=== PATIENT | female | born 1985 | race Caucasian/White ===

== ENCOUNTER 2020-02-03 23:20 | Inpatient (IN) | payer OTHER ==
[~2020-02-03] VITALS: Ht 172.7 cm; Wt 86.5 kg
[2020-02-04] MEDS ORDERED: ELVI1TAB3 PO (00:54)
[2020-02-04] MEDS ORDERED: BICT1TAB PO (00:54)
[2020-02-04 01:28] LABS: BASOPHILS % (AUTO) 0.3 % (0.0-2.0); EOSINOPHILS % (AUTO) 2.8 % (1.0-6.0); HEMATOCRIT 35.4 % (36-46); HEMOGLOBIN 11.7 g/dL (12.0-16.0); LYMPHOCYTES % (AUTO) 51.6 % (22.0-44.0); MEAN CORPUSCULAR HEMOGLOBIN 27.5 pg (26.0-34.0); MEAN CORPUSCULAR HGB CONC 33.2 G/dL (31.0-37.0); MEAN CORPUSCULAR VOLUME 83 fL (80-100); MONOCYTES # (AUTO) 0.4 K/uL (0.1-1.0); MONOCYTES % (AUTO) 10.7 % (2.0-9.0); NEUTROPHILS # (AUTO) 1.4 K/uL (1.8-7.7); NEUTROPHILS % (AUTO) 34.6 % (40.0-70.0); PLATELET COUNT (AUTO) 327 K/uL (150-450); RED BLOOD CELL COUNT(AUTO) 4.27 MIL/uL (4.00-5.20); RED CELL DISTRIBUTION WIDTH 16.3 % (11.5-14.5)
[2020-02-04 01:48] LABS: ANION GAP 7 mmol/L (8-16); CALCIUM, TOTAL 8.7 mg/dL (8.8-10.5); CARBON DIOXIDE 28 mmol/L (22-29); CHLORIDE 106 mmol/L (98-107); CREATININE 0.85 mg/dL (0.60-1.30); GLOMERULAR FILTR. RATE CALC > 60 mL/min (>60); GLUCOSE,RANDOM 89 mg/dL (70-110); SODIUM SERUM 141 mmol/L (136-145); UREA NITROGEN, BLOOD 16 mg/dL (7-18)
[2020-02-04 01:59] LABS: ALANINE AMINOTRANSFERASE 34 U/L (12-78); ALBUMIN 3.2 g/dL (3.4-5.0); ALKALINE PHOSPHATASE 64 U/L (46-116); ASPARTATE AMINOTRANSFERASE 34 U/L (15-37); BILIRUBIN,TOTAL 0.2 mg/dL (0.1-1.0); HCG,QUANTITATIVE < 1 mIU/mL (0-6); TOTAL PROTEIN, SERUM 7.7 g/dL (6.4-8.2)
[2020-02-04] MEDS ORDERED: ACETAMINOPHEN 500 MG TABLET PO ONE (02:15)
[2020-02-04] MEDS ORDERED: ONDANSETRON HCL 4 MG/2 ML VIAL IVP PRN (03:15)
[2020-02-04] MEDS ORDERED: ACETAMINOPHEN 325 MG TABLET PO PRN ×2 (03:15→04:30)
[2020-02-04] MEDS ORDERED: 0.9% SODIUM CHLORIDE 10 ML SYRINGE IVP PRN ×2 (03:15→04:30)
[2020-02-04 04:46] LABS: THYROID STIMULATING HORMONE 2.26 uIU/mL (0.36-3.74)
[2020-02-04 04:48] LABS: ACETAMINOPHEN < 2 mcg/mL (10-30)
[2020-02-04 04:51] VITALS: BP 102/59
[2020-02-04] MEDS ORDERED: CefTRIAXone 1 GM/DEXTROSE 50 ML IV SCH (06:00)
[2020-02-04] MEDS ORDERED: SODIUM CHLORIDE 0.9% 500 ML IV ONE (06:15)
[2020-02-04] MEDS: HEPARIN SODIUM,PORCINE 5,000 UNITS/ML VIAL SQ SCH ×3 (08:00→23:17)
[2020-02-04] MEDS ORDERED: DiphenhydrAMINE HCL 25 MG CAPSULE PO PRN (12:30)
[2020-02-04] MEDS: RisperiDONE 1 MG TABLET PO SCH ×2 (12:42→22:05)
[2020-02-04 13:36] LABS: APPEARANCE,URINE CLEAR (CLEAR); BILIRUBIN,URINE NEGATIVE (NEGATIVE); GLUCOSE, URINE (UA) NEGATIVE (NEGATIVE); KETONES,URINE NEGATIVE (NEGATIVE); LEUKOCYTE ESTERASE ,URINE NEGATIVE (NEGATIVE); NITRATE,URINE NEGATIVE (NEGATIVE); OCCULT BLOOD,URINE MODERATE (NEGATIVE); PH,URINE 6.5 (5.0-8.0); PROTEIN,URINE NEGATIVE (NEGATIVE); UROBILINOGEN,URINE 0.2 mg/dL (<=1.0)
[2020-02-04 13:44] LABS: AMPHET/METH SCREEN,URINE NEGATIVE (NEGATIVE); BARBITURATE SCREEN, URINE NEGATIVE (NEGATIVE); BENZODIAZEPINES SCREEN,URINE NEGATIVE (NEGATIVE); CANNABINOID SCREEN,URINE NEGATIVE (NEGATIVE); COCAINE SCREEN,URINE NEGATIVE (NEGATIVE); METHADONE SCREEN, URINE NEGATIVE (NEGATIVE); OPIATE SCREEN,URINE NEGATIVE (NEGATIVE)
[2020-02-04 13:45] LABS: PHENCYCLIDINE SCREEN,URINE NEGATIVE (NEGATIVE)
[2020-02-04 14:44] LABS: BACTERIA,URINE None Seen /HPF (None Seen); SQUAMOUS EPITHELIAL CELL,UR Few /LPF (None Seen); WBC,URINE None Seen /HPF (0-5)
[2020-02-04 15:17] VITALS: BP 99/69
[2020-02-04 15:30] VITALS: BP 99/69
[2020-02-04] MEDS ORDERED: ELVITEG/COB/EMTRI/TENOF ALAFEN 150-150-200-10MG TABLET PO ONE (17:30)
[2020-02-04 19:50] VITALS: BP 99/76
[2020-02-04] MEDS ORDERED: TraZODone HCL 100 MG TABLET PO SCH (21:00)
[2020-02-04] MEDS: PHENAZOPYRIDINE HCL 200 MG TABLET PO SCH (22:13)
[2020-02-04] MEDS: ACYCLOVIR 200 MG CAPSULE PO SCH (23:18)
[2020-02-05 03:55] VITALS: BP 96/54
[2020-02-05 06:58] LABS: BASOPHILS % (AUTO) 0.6 % (0.0-2.0); EOSINOPHILS % (AUTO) 3.8 % (1.0-6.0); HEMATOCRIT 35.5 % (36-46); HEMOGLOBIN 11.4 g/dL (12.0-16.0); LYMPHOCYTES # (AUTO) 1.8 K/uL (1.0-4.8); LYMPHOCYTES % (AUTO) 53.7 % (22.0-44.0); MEAN CORPUSCULAR HGB CONC 32.2 G/dL (31.0-37.0); MEAN CORPUSCULAR VOLUME 84 fL (80-100); MONOCYTES # (AUTO) 0.4 K/uL (0.1-1.0); MONOCYTES % (AUTO) 10.7 % (2.0-9.0); NEUTROPHILS % (AUTO) 31.2 % (40.0-70.0); PLATELET COUNT (AUTO) 293 K/uL (150-450); RED BLOOD CELL COUNT(AUTO) 4.24 MIL/uL (4.00-5.20); RED CELL DISTRIBUTION WIDTH 16.3 % (11.5-14.5)
[2020-02-05 07:12] LABS: ALANINE AMINOTRANSFERASE 41 U/L (12-78); ALBUMIN 2.8 g/dL (3.4-5.0); ALKALINE PHOSPHATASE 59 U/L (46-116); ANION GAP 7 mmol/L (8-16); ASPARTATE AMINOTRANSFERASE 35 U/L (15-37); BILIRUBIN,TOTAL 0.3 mg/dL (0.1-1.0); CALCIUM, TOTAL 8.4 mg/dL (8.8-10.5); CARBON DIOXIDE 27 mmol/L (22-29); CHLORIDE 107 mmol/L (98-107); CREATININE 0.75 mg/dL (0.60-1.30); GLOMERULAR FILTR. RATE CALC > 60 mL/min (>60); GLUCOSE,RANDOM 89 mg/dL (70-110); POTASSIUM 4.2 mmol/L (3.5-5.1); SODIUM SERUM 141 mmol/L (136-145); TOTAL PROTEIN, SERUM 7.1 g/dL (6.4-8.2); UREA NITROGEN, BLOOD 21 mg/dL (7-18)
[2020-02-05 08:36] VITALS: BP 95/73
[2020-02-05] MEDS: ACYCLOVIR 200 MG CAPSULE PO SCH ×2 (09:34→20:12)
[2020-02-05] MEDS: HEPARIN SODIUM,PORCINE 5,000 UNITS/ML VIAL SQ SCH ×3 (09:34→23:21)
[2020-02-05] MEDS: RisperiDONE 1 MG TABLET PO SCH ×2 (09:34→20:12)
[2020-02-05] MEDS: PHENAZOPYRIDINE HCL 200 MG TABLET PO SCH ×3 (09:35→20:11)
[2020-02-05] MEDS: ELVITEG/COB/EMTRI/TENOF ALAFEN 150-150-200-10MG TABLET PO SCH (10:24)
[2020-02-05 16:18] VITALS: BP 99/62
[2020-02-05 20:10] VITALS: BP 100/51
[2020-02-05] MEDS: ZOLPIDEM TARTRATE 10 MG TABLET PO PRN (22:02)
[2020-02-06 05:35] VITALS: BP 104/63
[2020-02-06] MEDS: HEPARIN SODIUM,PORCINE 5,000 UNITS/ML VIAL SQ SCH ×2 (08:00→15:53)
[2020-02-06] MEDS: RisperiDONE 1 MG TABLET PO SCH ×2 (08:17→20:28)
[2020-02-06] MEDS: ACYCLOVIR 200 MG CAPSULE PO SCH ×2 (08:17→20:28)
[2020-02-06] MEDS: PHENAZOPYRIDINE HCL 200 MG TABLET PO SCH ×2 (08:17→15:53)
[2020-02-06] MEDS: ELVITEG/COB/EMTRI/TENOF ALAFEN 150-150-200-10MG TABLET PO SCH (08:18)
[2020-02-06 08:58] VITALS: BP 118/72
[2020-02-06 16:22] VITALS: BP 107/55
[2020-02-06 20:23] VITALS: BP 107/63
[2020-02-06] MEDS: ZOLPIDEM TARTRATE 10 MG TABLET PO PRN (20:28)
[2020-02-07 05:33] VITALS: BP 99/62
[2020-02-07 07:38] VITALS: BP 98/63
[2020-02-07] MEDS: HEPARIN SODIUM,PORCINE 5,000 UNITS/ML VIAL SQ SCH ×3 (08:00→16:00)
[2020-02-07] MEDS: RisperiDONE 1 MG TABLET PO SCH (09:08)
[2020-02-07] MEDS: ACYCLOVIR 200 MG CAPSULE PO SCH (09:09)
[2020-02-07] MEDS: ELVITEG/COB/EMTRI/TENOF ALAFEN 150-150-200-10MG TABLET PO SCH (09:09)
[2020-02-07] MEDS ORDERED: ACYC200L PO (13:52)
[2020-02-07] MEDS ORDERED: RISP0.5T20 PO (13:53)
[2020-02-07 15:42] VITALS: BP 102/62
== END 2020-02-07 16:55 | DRG 885 ==
LOC: EMS 23:20 → 6S 02-04 03:05
PROVIDERS: ADMIT Internal Medicine; ATTEND Internal Medicine
DX: F31.5 Bipolar disorder, current episode depressed, severe, with psychotic features (principal); R45.851 Suicidal ideations; D72.819 Decreased white blood cell count, unspecified; R30.0 Dysuria; Z21 Asymptomatic human immunodeficiency virus [HIV] infection status; F17.210 Nicotine dependence, cigarettes, uncomplicated; Z88.8 Allergy status to other drugs, medicaments and biological substances; F15.10 Other stimulant abuse, uncomplicated; F41.9 Anxiety disorder, unspecified; A60.00 Herpesviral infection of urogenital system, unspecified; Z91.14 Patient's other noncompliance with medication regimen
CPT/HCPCS: 84443; 86360; G0480; G0481; J0696; J1644; J7040

== ENCOUNTER 2020-02-08 01:50 | Inpatient (IN) | payer OTHER ==
[~2020-02-08] VITALS: Ht 167.6 cm; Wt 90.7 kg
[~2020-02-08 01:50] MED LIST: ACYC200L PO; ELVI1TAB3 PO; RISP0.5T20 PO
[2020-02-08] MEDS ORDERED: ACYCLOVIR 200 MG CAPSULE PO ONE (02:30)
[2020-02-08] MEDS ORDERED: ONDANSETRON HCL 4 MG/2 ML VIAL IVP PRN ×2 (03:00→20:45)
[2020-02-08] MEDS ORDERED: ACETAMINOPHEN 325 MG TABLET PO PRN (03:00)
[2020-02-08] MEDS ORDERED: 0.9% SODIUM CHLORIDE 10 ML SYRINGE IVP PRN (03:00)
[2020-02-08 03:23] LABS: BASOPHILS % (AUTO) 0.8 % (0.0-2.0); EOSINOPHILS % (AUTO) 2.7 % (1.0-6.0); HEMOGLOBIN 11.2 g/dL (12.0-16.0); LYMPHOCYTES # (AUTO) 2.2 K/uL (1.0-4.8); LYMPHOCYTES % (AUTO) 53.8 % (22.0-44.0); MEAN CORPUSCULAR HEMOGLOBIN 27.5 pg (26.0-34.0); MEAN CORPUSCULAR HGB CONC 32.9 G/dL (31.0-37.0); MEAN CORPUSCULAR VOLUME 84 fL (80-100); MONOCYTES # (AUTO) 0.4 K/uL (0.1-1.0); MONOCYTES % (AUTO) 9.6 % (2.0-9.0); NEUTROPHILS # (AUTO) 1.3 K/uL (1.8-7.7); NEUTROPHILS % (AUTO) 33.1 % (40.0-70.0); PLATELET COUNT (AUTO) 334 K/uL (150-450); RED BLOOD CELL COUNT(AUTO) 4.06 MIL/uL (4.00-5.20); RED CELL DISTRIBUTION WIDTH 16.3 % (11.5-14.5)
[2020-02-08 03:32] LABS: ANION GAP 5 mmol/L (8-16); CALCIUM, TOTAL 8.7 mg/dL (8.8-10.5); CARBON DIOXIDE 32 mmol/L (22-29); CHLORIDE 101 mmol/L (98-107); CREATININE 0.89 mg/dL (0.60-1.30); GLOMERULAR FILTR. RATE CALC > 60 mL/min (>60); GLUCOSE,RANDOM 126 mg/dL (70-110); POTASSIUM 3.7 mmol/L (3.5-5.1); SODIUM SERUM 138 mmol/L (136-145); UREA NITROGEN, BLOOD 21 mg/dL (7-18)
[2020-02-08 03:43] LABS: ALANINE AMINOTRANSFERASE 55 U/L (12-78); ALKALINE PHOSPHATASE 75 U/L (46-116); ASPARTATE AMINOTRANSFERASE 43 U/L (15-37); BILIRUBIN,TOTAL 0.2 mg/dL (0.1-1.0); HCG,QUANTITATIVE < 1 mIU/mL (0-6); TOTAL PROTEIN, SERUM 7.7 g/dL (6.4-8.2)
[2020-02-08 04:05] VITALS: BP 109/72
[2020-02-08] MEDS ORDERED: PNEUMOCOCCAL VACCINE POLYVALENT 0.5 ML VIAL [PPSV23] IM ONE (06:00)
[2020-02-08 08:04] VITALS: BP 97/52
[2020-02-08 15:23] VITALS: BP 102/46
[2020-02-08] MEDS: DIVALPROEX SODIUM 500 MG DR TABLET PO SCH (19:50)
[2020-02-08] MEDS: RisperiDONE 3 MG TABLET PO SCH (19:50)
[2020-02-08] MEDS: ACYCLOVIR 800 MG TABLET PO SCH (19:50)
[2020-02-08] MEDS: BENZTROPINE MESYLATE 1 MG TABLET PO SCH (19:50)
[2020-02-08 19:56] VITALS: BP 120/64
[2020-02-08] MEDS ORDERED: IPRATROPIUM BROMIDE 0.5 MG/2.5 ML NEB SOLUTION NEB PRN (20:45)
[2020-02-08] MEDS ORDERED: BISACODYL 10 MG RECTAL RECTAL SUPPOSITORY PR PRN (20:45)
[2020-02-08] MEDS ORDERED: MORPHINE SULFATE 2 MG/ML SYRINGE IVP PRN (20:45)
[2020-02-08] MEDS ORDERED: ALBUTEROL SULFATE 2.5 MG/0.5 ML NEB SOLUTION NEB PRN (20:45)
[2020-02-08] MEDS ORDERED: MAGNESIUM HYDROXIDE SUSPENSION 30 ML UDCUP PO PRN (20:45)
[2020-02-08] MEDS ORDERED: HYDROCODONE/ACETAMINOPHEN 5-325 MG TABLET PO PRN (20:45)
[2020-02-08] MEDS ORDERED: RisperiDONE 0.5 MG TABLET PO SCH (21:00)
[2020-02-08] MEDS ORDERED: ZOLPIDEM TARTRATE 5 MG TABLET PO PRN (21:15)
[2020-02-08] MEDS: DOCUSATE SODIUM 100 MG CAPSULE PO SCH (21:33)
[2020-02-08] MEDS: ZOLPIDEM TARTRATE 5 MG TABLET PO PRN (21:33)
[2020-02-09] MEDS: HEPARIN SODIUM,PORCINE 5,000 UNITS/ML VIAL SQ SCH ×4 (08:00→23:35)
[2020-02-09 08:11] VITALS: BP 103/51
[2020-02-09] MEDS: DOCUSATE SODIUM 100 MG CAPSULE PO SCH ×2 (08:33→20:16)
[2020-02-09] MEDS: DIVALPROEX SODIUM 500 MG DR TABLET PO SCH ×2 (08:33→20:16)
[2020-02-09] MEDS: BENZTROPINE MESYLATE 1 MG TABLET PO SCH ×2 (08:33→20:16)
[2020-02-09] MEDS: ELVITEG/COB/EMTRI/TENOF ALAFEN 150-150-200-10MG TABLET PO SCH (08:34)
[2020-02-09] MEDS: ACYCLOVIR 800 MG TABLET PO SCH ×2 (08:34→20:16)
[2020-02-09] MEDS: RisperiDONE 3 MG TABLET PO SCH ×2 (08:34→20:16)
[2020-02-09 15:58] VITALS: BP 101/64
[2020-02-09] MEDS: ZOLPIDEM TARTRATE 5 MG TABLET PO PRN (20:18)
[2020-02-09 20:19] VITALS: BP 105/66
[2020-02-09] MEDS: ACETAMINOPHEN 325 MG TABLET PO PRN (23:26)
[2020-02-10 04:58] VITALS: BP 103/62
[2020-02-10 08:12] VITALS: BP 111/62
[2020-02-10] MEDS: DIVALPROEX SODIUM 500 MG DR TABLET PO SCH ×2 (08:18→20:04)
[2020-02-10] MEDS: DOCUSATE SODIUM 100 MG CAPSULE PO SCH ×2 (08:18→20:04)
[2020-02-10] MEDS: HEPARIN SODIUM,PORCINE 5,000 UNITS/ML VIAL SQ SCH ×3 (08:18→23:26)
[2020-02-10] MEDS: ACYCLOVIR 800 MG TABLET PO SCH ×2 (08:19→20:04)
[2020-02-10] MEDS: RisperiDONE 3 MG TABLET PO SCH ×2 (08:19→20:04)
[2020-02-10] MEDS: ELVITEG/COB/EMTRI/TENOF ALAFEN 150-150-200-10MG TABLET PO SCH (08:19)
[2020-02-10] MEDS: BENZTROPINE MESYLATE 1 MG TABLET PO SCH ×2 (08:19→20:04)
[2020-02-10 16:05] VITALS: BP 160/61
[2020-02-10 20:06] VITALS: BP 99/56
[2020-02-10] MEDS: ZOLPIDEM TARTRATE 5 MG TABLET PO PRN (20:39)
[2020-02-11 08:16] VITALS: BP 127/96
[2020-02-11] MEDS: DIVALPROEX SODIUM 500 MG DR TABLET PO SCH ×2 (08:16→20:19)
[2020-02-11] MEDS: HEPARIN SODIUM,PORCINE 5,000 UNITS/ML VIAL SQ SCH ×3 (08:16→23:25)
[2020-02-11] MEDS: DOCUSATE SODIUM 100 MG CAPSULE PO SCH ×2 (08:16→20:19)
[2020-02-11] MEDS: BENZTROPINE MESYLATE 1 MG TABLET PO SCH ×2 (08:16→20:19)
[2020-02-11] MEDS: ELVITEG/COB/EMTRI/TENOF ALAFEN 150-150-200-10MG TABLET PO SCH (08:16)
[2020-02-11] MEDS: ACYCLOVIR 800 MG TABLET PO SCH ×2 (08:17→20:19)
[2020-02-11] MEDS: RisperiDONE 3 MG TABLET PO SCH ×2 (08:17→20:19)
[2020-02-11 15:30] VITALS: BP 110/58
[2020-02-11 20:04] VITALS: BP 111/70
[2020-02-11] MEDS: ZOLPIDEM TARTRATE 5 MG TABLET PO PRN (21:50)
[2020-02-11] MEDS ORDERED: LORazepam 2 MG/ML VIAL IM ONE (23:15)
[2020-02-12] MEDS ORDERED: HALOPERIDOL LACTATE 5 MG/ML VIAL IM ONE (03:00)
[2020-02-12] MEDS ORDERED: DiphenhydrAMINE HCL 50 MG/ML VIAL IM ONE (03:00)
[2020-02-12] MEDS ORDERED: LORazepam 2 MG/ML VIAL IM ONE (03:00)
[2020-02-12 05:15] VITALS: BP 114/73
[2020-02-12 06:37] VITALS: BP 114/73
[2020-02-12] MEDS: HEPARIN SODIUM,PORCINE 5,000 UNITS/ML VIAL SQ SCH ×3 (08:00→23:51)
[2020-02-12 08:27] LABS: VALPROIC ACID 57 mcg/mL (50-100)
[2020-02-12] MEDS: ACYCLOVIR 800 MG TABLET PO SCH ×2 (08:49→20:02)
[2020-02-12] MEDS: DIVALPROEX SODIUM 500 MG DR TABLET PO SCH ×2 (08:49→20:02)
[2020-02-12] MEDS: DOCUSATE SODIUM 100 MG CAPSULE PO SCH ×2 (08:49→20:02)
[2020-02-12] MEDS: ELVITEG/COB/EMTRI/TENOF ALAFEN 150-150-200-10MG TABLET PO SCH (08:49)
[2020-02-12] MEDS: RisperiDONE 3 MG TABLET PO SCH (08:49)
[2020-02-12] MEDS: BENZTROPINE MESYLATE 1 MG TABLET PO SCH (08:49)
[2020-02-12 11:35] LABS: ALANINE AMINOTRANSFERASE 42 U/L (12-78); ALBUMIN 3.2 g/dL (3.4-5.0); ALKALINE PHOSPHATASE 57 U/L (46-116); ANION GAP 10 mmol/L (8-16); ASPARTATE AMINOTRANSFERASE 31 U/L (15-37); BILIRUBIN,TOTAL 0.2 mg/dL (0.1-1.0); CARBON DIOXIDE 25 mmol/L (22-29); CHLORIDE 104 mmol/L (98-107); CREATININE 0.77 mg/dL (0.60-1.30); GLOMERULAR FILTR. RATE CALC > 60 mL/min (>60); GLUCOSE,RANDOM 101 mg/dL (70-110); POTASSIUM 3.7 mmol/L (3.5-5.1); SODIUM SERUM 139 mmol/L (136-145); TOTAL PROTEIN, SERUM 8.1 g/dL (6.4-8.2); UREA NITROGEN, BLOOD 23 mg/dL (7-18)
[2020-02-12] MEDS ORDERED: ACYC800T PO (12:10)
[2020-02-12] MEDS ORDERED: RISP1TAB27 PO (12:10)
[2020-02-12 13:25] VITALS: BP 108/73
[2020-02-12 18:26] LABS: APPEARANCE,URINE CLEAR (CLEAR); BILIRUBIN,URINE NEGATIVE (NEGATIVE); GLUCOSE, URINE (UA) NEGATIVE (NEGATIVE); KETONES,URINE NEGATIVE (NEGATIVE); LEUKOCYTE ESTERASE ,URINE NEGATIVE (NEGATIVE); NITRATE,URINE NEGATIVE (NEGATIVE); OCCULT BLOOD,URINE MODERATE (NEGATIVE); PH,URINE 7.5 (5.0-8.0); PROTEIN,URINE NEGATIVE (NEGATIVE); UROBILINOGEN,URINE 0.2 mg/dL (<=1.0)
[2020-02-12 18:45] LABS: WBC,URINE 0-2 /HPF (0-5)
[2020-02-12 18:46] LABS: BACTERIA,URINE None Seen /HPF (None Seen); SQUAMOUS EPITHELIAL CELL,UR Few /LPF (None Seen)
[2020-02-12 19:30] VITALS: BP 115/75
[2020-02-12] MEDS: ZOLPIDEM TARTRATE 5 MG TABLET PO PRN (20:02)
[2020-02-12] MEDS ORDERED: HALOPERIDOL LACTATE 5 MG/ML VIAL IM PRN (21:00)
[2020-02-12] MEDS ORDERED: LORazepam 2 MG/ML VIAL IM PRN (21:00)
[2020-02-13 04:00] VITALS: BP 100/72
[2020-02-13] MEDS: ELVITEG/COB/EMTRI/TENOF ALAFEN 150-150-200-10MG TABLET PO SCH (08:00)
[2020-02-13] MEDS: HEPARIN SODIUM,PORCINE 5,000 UNITS/ML VIAL SQ SCH ×2 (08:00→15:50)
[2020-02-13] MEDS: DIVALPROEX SODIUM 500 MG DR TABLET PO SCH ×2 (09:00→20:24)
[2020-02-13] MEDS: DOCUSATE SODIUM 100 MG CAPSULE PO SCH ×2 (09:00→20:24)
[2020-02-13] MEDS: ACYCLOVIR 800 MG TABLET PO SCH ×2 (09:00→20:25)
[2020-02-13 09:31] VITALS: BP 116/76
[2020-02-13 12:37] LABS: BASOPHILS % (AUTO) 0.7 % (0.0-2.0); EOSINOPHILS % (AUTO) 1.3 % (1.0-6.0); HEMATOCRIT 33.1 % (36-46); HEMOGLOBIN 11.1 g/dL (12.0-16.0); LYMPHOCYTES # (AUTO) 2.3 K/uL (1.0-4.8); LYMPHOCYTES % (AUTO) 48.1 % (22.0-44.0); MEAN CORPUSCULAR HEMOGLOBIN 27.8 pg (26.0-34.0); MEAN CORPUSCULAR HGB CONC 33.5 G/dL (31.0-37.0); MEAN CORPUSCULAR VOLUME 83 fL (80-100); MONOCYTES # (AUTO) 0.5 K/uL (0.1-1.0); MONOCYTES % (AUTO) 10.6 % (2.0-9.0); NEUTROPHILS # (AUTO) 1.9 K/uL (1.8-7.7); NEUTROPHILS % (AUTO) 39.3 % (40.0-70.0); PLATELET COUNT (AUTO) 348 K/uL (150-450); RED BLOOD CELL COUNT(AUTO) 3.99 MIL/uL (4.00-5.20); RED CELL DISTRIBUTION WIDTH 16.8 % (11.5-14.5)
[2020-02-13 12:56] VITALS: BP 122/70
[2020-02-13 16:33] LABS: ABG A-A DIFF O2 16.1 mmHg (10-20.0); ABG BASE EXCESS -1.7 mmol/L (-2.0-3.0); ABG CARBOXYHEMOGLOBIN 1.4 % (0.0-1.5); ABG HCO3 23.1 mmol/L (22.0-26.0); ABG METHEMOGLOBIN 0.2 % (0.0-1.5); ABG OXYGEN CONTENT 15.9 mL/dL (15.0-23.0); ABG OXYHEMOGLOBIN 94.5 % (94.0-100.0); ABG PCO2 40 mmHg (35-45); ABG PH 7.382 (7.350-7.450); ABG TOTAL HEMOGLOBIN 11.9 G/dL (12.0-18.0); PO2, ARTERIAL BG 85.5 mmHg (92.0-100.0); SOURCE, BLOOD GAS ARTERIAL; TEMPERATURE, FAHRENHEIT, BG 98.6 FAHREN (96.0-98.6)
[2020-02-13 16:35] LABS: SITE, BLOOD GAS RT RADIAL
[2020-02-13 19:41] LABS: AMPHET/METH SCREEN,URINE NEGATIVE (NEGATIVE); BARBITURATE SCREEN, URINE NEGATIVE (NEGATIVE); BENZODIAZEPINES SCREEN,URINE NEGATIVE (NEGATIVE); CANNABINOID SCREEN,URINE NEGATIVE (NEGATIVE); COCAINE SCREEN,URINE NEGATIVE (NEGATIVE); METHADONE SCREEN, URINE NEGATIVE (NEGATIVE); OPIATE SCREEN,URINE NEGATIVE (NEGATIVE); PHENCYCLIDINE SCREEN,URINE NEGATIVE (NEGATIVE)
[2020-02-13 20:06] VITALS: BP 109/72
[2020-02-14 04:00] VITALS: BP 124/78
[2020-02-14 07:40] VITALS: BP 121/62
[2020-02-14] MEDS: HEPARIN SODIUM,PORCINE 5,000 UNITS/ML VIAL SQ SCH ×5 (08:00→23:36)
[2020-02-14] MEDS: ACYCLOVIR 800 MG TABLET PO SCH ×2 (08:12→21:25)
[2020-02-14] MEDS: DIVALPROEX SODIUM 500 MG DR TABLET PO SCH ×2 (08:12→21:25)
[2020-02-14] MEDS: ELVITEG/COB/EMTRI/TENOF ALAFEN 150-150-200-10MG TABLET PO SCH (08:12)
[2020-02-14] MEDS: DOCUSATE SODIUM 100 MG CAPSULE PO SCH ×3 (09:35→21:29)
[2020-02-14 21:02] VITALS: BP 104/53
[2020-02-15 05:45] VITALS: BP 99/55
[2020-02-15 06:35] LABS: BASOPHILS % (AUTO) 0.6 % (0.0-2.0); EOSINOPHILS % (AUTO) 2.1 % (1.0-6.0); HEMATOCRIT 34.9 % (36-46); HEMOGLOBIN 11.5 g/dL (12.0-16.0); LYMPHOCYTES # (AUTO) 2.9 K/uL (1.0-4.8); LYMPHOCYTES % (AUTO) 53.2 % (22.0-44.0); MEAN CORPUSCULAR HEMOGLOBIN 27.5 pg (26.0-34.0); MEAN CORPUSCULAR HGB CONC 32.9 G/dL (31.0-37.0); MEAN CORPUSCULAR VOLUME 84 fL (80-100); MONOCYTES # (AUTO) 0.6 K/uL (0.1-1.0); MONOCYTES % (AUTO) 11.3 % (2.0-9.0); NEUTROPHILS # (AUTO) 1.8 K/uL (1.8-7.7); NEUTROPHILS % (AUTO) 32.8 % (40.0-70.0); PLATELET COUNT (AUTO) 336 K/uL (150-450); RED BLOOD CELL COUNT(AUTO) 4.18 MIL/uL (4.00-5.20); RED CELL DISTRIBUTION WIDTH 16.3 % (11.5-14.5)
[2020-02-15 07:14] LABS: ANION GAP 10 mmol/L (8-16); CALCIUM, TOTAL 8.7 mg/dL (8.8-10.5); CARBON DIOXIDE 29 mmol/L (22-29); CHLORIDE 101 mmol/L (98-107); CREATININE 0.87 mg/dL (0.60-1.30); FREE T4 (FREE THYROXINE) 0.98 ng/dL (0.76-1.46); GLOMERULAR FILTR. RATE CALC > 60 mL/min (>60); GLUCOSE,RANDOM 94 mg/dL (70-110); POTASSIUM 4.2 mmol/L (3.5-5.1); SODIUM SERUM 140 mmol/L (136-145); THYROID STIMULATING HORMONE 2.09 uIU/mL (0.36-3.74); UREA NITROGEN, BLOOD 21 mg/dL (7-18)
[2020-02-15] MEDS: HEPARIN SODIUM,PORCINE 5,000 UNITS/ML VIAL SQ SCH ×2 (08:00→16:00)
[2020-02-15 09:10] VITALS: BP 99/55
[2020-02-15] MEDS: ELVITEG/COB/EMTRI/TENOF ALAFEN 150-150-200-10MG TABLET PO SCH (09:23)
[2020-02-15] MEDS: ACYCLOVIR 800 MG TABLET PO SCH ×2 (09:23→20:19)
[2020-02-15] MEDS: DIVALPROEX SODIUM 500 MG DR TABLET PO SCH ×2 (09:23→20:19)
[2020-02-15 17:07] VITALS: BP 104/60
[2020-02-15 20:11] VITALS: BP 109/61
[2020-02-15] MEDS: DOCUSATE SODIUM 100 MG CAPSULE PO SCH (20:19)
[2020-02-16] MEDS: ACETAMINOPHEN 325 MG TABLET PO PRN ×3 (02:24→19:54)
[2020-02-16] MEDS: HEPARIN SODIUM,PORCINE 5,000 UNITS/ML VIAL SQ SCH ×3 (08:00→16:00)
[2020-02-16 08:40] VITALS: BP 102/66
[2020-02-16] MEDS: ELVITEG/COB/EMTRI/TENOF ALAFEN 150-150-200-10MG TABLET PO SCH (12:03)
[2020-02-16] MEDS: DIVALPROEX SODIUM 500 MG DR TABLET PO SCH ×2 (12:03→19:53)
[2020-02-16] MEDS: DOCUSATE SODIUM 100 MG CAPSULE PO SCH ×2 (12:03→19:53)
[2020-02-16] MEDS: ACYCLOVIR 800 MG TABLET PO SCH ×2 (12:04→19:53)
[2020-02-16 19:00] VITALS: BP 104/54
[2020-02-16] MEDS: RisperiDONE 1 MG TABLET PO SCH (21:09)
[2020-02-16] MEDS: ZOLPIDEM TARTRATE 5 MG TABLET PO PRN (21:11)
[2020-02-17] MEDS: ACETAMINOPHEN 325 MG TABLET PO PRN ×3 (00:47→21:49)
[2020-02-17 04:00] VITALS: BP 104/69
[2020-02-17] MEDS: HEPARIN SODIUM,PORCINE 5,000 UNITS/ML VIAL SQ SCH ×3 (08:00→16:00)
[2020-02-17] MEDS: DIVALPROEX SODIUM 500 MG DR TABLET PO SCH ×2 (08:08→21:15)
[2020-02-17] MEDS: ELVITEG/COB/EMTRI/TENOF ALAFEN 150-150-200-10MG TABLET PO SCH (08:08)
[2020-02-17] MEDS: ACYCLOVIR 800 MG TABLET PO SCH ×2 (08:08→21:15)
[2020-02-17] MEDS: DOCUSATE SODIUM 100 MG CAPSULE PO SCH ×2 (08:08→21:00)
[2020-02-17] MEDS: RisperiDONE 1 MG TABLET PO SCH ×2 (08:08→21:15)
[2020-02-17 08:09] VITALS: BP 92/56
[2020-02-17 19:40] VITALS: BP 99/56
[2020-02-17] MEDS: ZOLPIDEM TARTRATE 5 MG TABLET PO PRN (21:17)
[2020-02-18 04:00] VITALS: BP 100/61
[2020-02-18] MEDS: ACETAMINOPHEN 325 MG TABLET PO PRN ×3 (04:01→20:11)
[2020-02-18] MEDS: HEPARIN SODIUM,PORCINE 5,000 UNITS/ML VIAL SQ SCH ×4 (08:00→23:31)
[2020-02-18 08:21] VITALS: BP 92/64
[2020-02-18] MEDS: DOCUSATE SODIUM 100 MG CAPSULE PO SCH ×2 (09:00→20:13)
[2020-02-18] MEDS: ELVITEG/COB/EMTRI/TENOF ALAFEN 150-150-200-10MG TABLET PO SCH (09:29)
[2020-02-18] MEDS: DIVALPROEX SODIUM 500 MG DR TABLET PO SCH ×2 (09:29→20:11)
[2020-02-18] MEDS: ACYCLOVIR 800 MG TABLET PO SCH ×2 (09:29→20:11)
[2020-02-18] MEDS: RisperiDONE 1 MG TABLET PO SCH ×2 (09:29→20:11)
[2020-02-18] MEDS ORDERED: RISP1TAB27 PO (13:29)
[2020-02-18 19:51] VITALS: BP 94/55
[2020-02-18] MEDS: ZOLPIDEM TARTRATE 5 MG TABLET PO PRN (20:11)
[2020-02-19] MEDS: ACETAMINOPHEN 325 MG TABLET PO PRN (00:45)
[2020-02-19] MEDS ORDERED: RISP1TAB27 PO (00:56)
[2020-02-19] MEDS ORDERED: ACET-3207 PO (01:00)
[2020-02-19 04:40] VITALS: BP 94/56
[2020-02-19 07:44] VITALS: BP 93/59
[2020-02-19] MEDS: HEPARIN SODIUM,PORCINE 5,000 UNITS/ML VIAL SQ SCH ×2 (08:00→08:02)
[2020-02-19] MEDS: ELVITEG/COB/EMTRI/TENOF ALAFEN 150-150-200-10MG TABLET PO SCH (08:02)
[2020-02-19] MEDS: ACYCLOVIR 800 MG TABLET PO SCH (08:02)
[2020-02-19] MEDS: DOCUSATE SODIUM 100 MG CAPSULE PO SCH (08:02)
[2020-02-19] MEDS: DIVALPROEX SODIUM 500 MG DR TABLET PO SCH (08:03)
[2020-02-19] MEDS: RisperiDONE 1 MG TABLET PO SCH (08:03)
[2020-02-19] MEDS ORDERED: DIVA-111 PO (11:34)
== END 2020-02-19 14:18 | DRG 92 ==
LOC: EMS 01:51 → 6S 02:30
PROVIDERS: ADMIT Hospitalist; ATTEND Hospitalist
DX: G92 Toxic encephalopathy (principal); R45.851 Suicidal ideations; F17.210 Nicotine dependence, cigarettes, uncomplicated; B00.9 Herpesviral infection, unspecified; F31.9 Bipolar disorder, unspecified; Z21 Asymptomatic human immunodeficiency virus [HIV] infection status; F41.9 Anxiety disorder, unspecified; Z28.21 Immunization not carried out because of patient refusal; Z88.8 Allergy status to other drugs, medicaments and biological substances; Z79.899 Other long term (current) drug therapy
CPT/HCPCS: 70450; 80307; 82805; 84145; 84439; 84443; G0480; J1200; J1630; J1644; J2060

== ENCOUNTER 2022-12-17 10:57 | Inpatient (IN) | payer OTHER ==
[~2022-12-17] VITALS: Ht 175.3 cm; Wt 102.0 kg
[~2022-12-17 10:57] MED LIST changes: +ACET-3207 PO; +ACYC-138 PO; -ACYC200L PO; +DIVA-111 PO; -RISP0.5T20 PO; +RISP1TAB48 PO
[2022-12-17] MEDS ORDERED: TEST200V27 IM (11:31)
[2022-12-17] MEDS ORDERED: TENO300 PO (11:31)
[2022-12-17] MEDS ORDERED: LAMI150T33 PO (11:31)
[2022-12-17] MEDS ORDERED: METR500 PO (11:31)
[2022-12-17 12:15] LABS: BASOPHILS % (AUTO) 0.6 % (0.0-2.0); EOSINOPHILS % (AUTO) 1.3 % (1.0-6.0); HEMATOCRIT 40.4 % (36-46); HEMOGLOBIN 13.6 g/dL (12.0-16.0); LYMPHOCYTES # (AUTO) 3.2 K/uL (1.0-4.8); LYMPHOCYTES % (AUTO) 46.2 % (22.0-44.0); MEAN CORPUSCULAR HEMOGLOBIN 31.8 pg (26.0-34.0); MEAN CORPUSCULAR HGB CONC 33.7 G/dL (31.0-37.0); MEAN CORPUSCULAR VOLUME 95 fL (80-100); MONOCYTES # (AUTO) 0.6 K/uL (0.1-1.0); MONOCYTES % (AUTO) 8.4 % (2.0-9.0); NEUTROPHILS % (AUTO) 43.5 % (40.0-70.0); PLATELET COUNT (AUTO) 291 K/uL (150-450); RED BLOOD CELL COUNT(AUTO) 4.27 MIL/uL (4.00-5.20); RED CELL DISTRIBUTION WIDTH 16.3 % (11.5-14.5)
[2022-12-17] MEDS ORDERED: DIVA-112 PO (12:31)
[2022-12-17 12:33] LABS: AMPHET/METH SCREEN,URINE NEGATIVE (NEGATIVE); BARBITURATE SCREEN, URINE NEGATIVE (NEGATIVE); BENZODIAZEPINES SCREEN,URINE NEGATIVE (NEGATIVE); CANNABINOID SCREEN,URINE NEGATIVE (NEGATIVE); COCAINE SCREEN,URINE NEGATIVE (NEGATIVE); METHADONE SCREEN, URINE NEGATIVE (NEGATIVE); OPIATE SCREEN,URINE NEGATIVE (NEGATIVE); PHENCYCLIDINE SCREEN,URINE NEGATIVE (NEGATIVE)
[2022-12-17 12:39] LABS: ANION GAP 12 mmol/L (8-16); CARBON DIOXIDE 25 mmol/L (22-29); CHLORIDE 104 mmol/L (98-107); CREATININE 0.79 mg/dL (0.60-1.30); GLOMERULAR FILTR. RATE CALC > 60 mL/min (>60); GLUCOSE,RANDOM 97 mg/dL (70-110); POTASSIUM 3.4 mmol/L (3.5-5.1); SODIUM SERUM 141 mmol/L (136-145)
[2022-12-17 12:45] LABS: ALANINE AMINOTRANSFERASE 45 U/L (12-78); ALBUMIN 3.7 g/dL (3.4-5.0); ALKALINE PHOSPHATASE 55 U/L (46-116); ASPARTATE AMINOTRANSFERASE 27 U/L (15-37); BILIRUBIN,TOTAL 0.4 mg/dL (0.1-1.0); TOTAL PROTEIN, SERUM 7.9 g/dL (6.4-8.2)
[2022-12-17] MEDS ORDERED: IPRATROPIUM BROMIDE 0.5 MG/2.5 ML NEB SOLUTION NEB PRN (14:30)
[2022-12-17] MEDS ORDERED: 0.9% SODIUM CHLORIDE 10 ML SYRINGE IVP PRN (14:30)
[2022-12-17] MEDS ORDERED: ONDANSETRON HCL 4 MG/2 ML VIAL IVP PRN (14:30)
[2022-12-17] MEDS ORDERED: BISACODYL 10 MG RECTAL RECTAL SUPPOSITORY PR PRN (14:30)
[2022-12-17] MEDS ORDERED: ALBUTEROL SULFATE 2.5 MG/0.5 ML NEB SOLUTION NEB PRN (14:30)
[2022-12-17] MEDS ORDERED: ACETAMINOPHEN 325 MG TABLET PO PRN (14:30)
[2022-12-17 15:03] LABS: VALPROIC ACID < 3 mcg/mL (50-100)
[2022-12-17 21:02] VITALS: BP 101/53
[2022-12-17] MEDS ORDERED: HALOPERIDOL LACTATE 5 MG/ML VIAL IM ONE (21:30)
[2022-12-17] MEDS: MetroNIDAZOLE 500 MG TABLET PO SCH (21:45)
[2022-12-17] MEDS: DIVALPROEX SODIUM 500 MG DR TABLET PO SCH (21:45)
[2022-12-17] MEDS: TENOFOVIR DISOPROXIL FUMARATE 300 MG TABLET PO SCH (21:45)
[2022-12-17 22:11] LABS: APPEARANCE,URINE HAZY (CLEAR); BILIRUBIN,URINE NEGATIVE (NEGATIVE); GLUCOSE, URINE (UA) NEGATIVE (NEGATIVE); KETONES,URINE NEGATIVE (NEGATIVE); LEUKOCYTE ESTERASE ,URINE TRACE (NEGATIVE); NITRATE,URINE NEGATIVE (NEGATIVE); OCCULT BLOOD,URINE NEGATIVE (NEGATIVE); PH,URINE 7.5 (5.0-8.0); PROTEIN,URINE NEGATIVE (NEGATIVE); SPECIFIC GRAVITIY, URINE 1.016 (1.003-1.030); UROBILINOGEN,URINE <=1.0 mg/dL (<=1.0)
[2022-12-17 22:17] LABS: BACTERIA,URINE Rare /HPF (None Seen); RBC,URINE 0-2 /HPF (0-2)
[2022-12-17 22:18] LABS: SQUAMOUS EPITHELIAL CELL,UR Few /LPF (None Seen)
[2022-12-18 05:27] VITALS: BP 93/59
[2022-12-18] MEDS: MetroNIDAZOLE 500 MG TABLET PO SCH ×2 (09:22→20:55)
[2022-12-18] MEDS: DIVALPROEX SODIUM 500 MG DR TABLET PO SCH ×2 (09:22→20:56)
[2022-12-18 10:08] VITALS: BP 87/58
[2022-12-18 12:00] VITALS: BP 92/50
[2022-12-18] MEDS ORDERED: HALOPERIDOL 5 MG TABLET PO PRN (14:15)
[2022-12-18] MEDS: OLANZapine 5 MG RAPDIS TABLET PO SCH ×2 (15:13→20:56)
[2022-12-18 19:56] VITALS: BP 98/52
[2022-12-18] MEDS: TENOFOVIR DISOPROXIL FUMARATE 300 MG TABLET PO SCH (20:56)
[2022-12-19 04:10] VITALS: BP 99/58
[2022-12-19 07:30] VITALS: BP 91/68
[2022-12-19] MEDS: OLANZapine 5 MG RAPDIS TABLET PO SCH ×2 (08:30→20:19)
[2022-12-19] MEDS: DIVALPROEX SODIUM 500 MG DR TABLET PO SCH ×2 (08:30→20:20)
[2022-12-19] MEDS: MetroNIDAZOLE 500 MG TABLET PO SCH ×2 (08:30→20:18)
[2022-12-19 11:21] VITALS: BP 78/37
[2022-12-19] MEDS ORDERED: POTASSIUM CHLORIDE 20 MEQ ER TABLET PO ONE (12:15)
[2022-12-19 19:50] VITALS: BP 101/52
[2022-12-19] MEDS: TENOFOVIR DISOPROXIL FUMARATE 300 MG TABLET PO SCH (20:18)
[2022-12-20 04:55] VITALS: BP 95/57
[2022-12-20 08:05] VITALS: BP 94/46
[2022-12-20] MEDS: OLANZapine 5 MG RAPDIS TABLET PO SCH (08:12)
[2022-12-20] MEDS: DIVALPROEX SODIUM 500 MG DR TABLET PO SCH (08:14)
[2022-12-20] MEDS: MetroNIDAZOLE 500 MG TABLET PO SCH (08:14)
[2022-12-20 16:38] VITALS: BP 98/53
[2022-12-20] MEDS ORDERED: OLAN5TAB94 PO (17:05)
== END 2022-12-20 19:21 | DRG 885 ==
LOC: EMS 11:03 → 6S 18:50
PROVIDERS: ADMIT Internal Medicine; ATTEND Internal Medicine
DX: F31.4 Bipolar disorder, current episode depressed, severe, without psychotic features (principal); R45.851 Suicidal ideations; F41.1 Generalized anxiety disorder; F44.81 Dissociative identity disorder; J45.909 Unspecified asthma, uncomplicated; Z21 Asymptomatic human immunodeficiency virus [HIV] infection status; F64.0 Transsexualism; Z88.0 Allergy status to penicillin; Z87.891 Personal history of nicotine dependence; Z88.8 Allergy status to other drugs, medicaments and biological substances; Z91.018 Allergy to other foods; Z79.899 Other long term (current) drug therapy
CPT/HCPCS: 80053; 80164; 80307; 81001; 85025; 99285; G0480